=== PATIENT | female | born 1960 | race Caucasian/White ===

== ENCOUNTER 2024-06-01 15:12 | Outpatient (CLI) | payer BC ==
[~2024-06-01 15:12] MED LIST: Magnevist 469MG/ML 20 ML VIAL ONE
== END 2024-06-01 15:13 | disposition home or self-care (01) ==
LOC: CSHMRI 15:12
PROVIDERS: ATTEND Family Medicine
DX: N89.8 Other specified noninflammatory disorders of vagina (principal)
CPT/HCPCS: 72197; A9579

== ENCOUNTER 2024-07-27 07:49 | Outpatient (CLI) | payer BC ==
[2024-07-27 09:22] LABS: #Basophils 0.05 10x3/uL (0.0-0.2); #Eosinophils 0.16 10x3/uL (0.0-0.5); #Monocytes 1.01 10x3/uL (0.0-1.1); #Neutrophils 11.06 10x3/uL (1.5-8.4); %Basophils 0.4 % (0.0-2.0); %Eosinophils 1.2 % (0.0-6.0); %Lymphocytes 7.3 % (18.0-47.0); %Monocytes 7.6 % (0.0-10.0); %Neutrophils 82.9 % (40.0-75.0); Hemoglobin 9.2 g/dL (12.0-15.5); Mean Corpuscular HGB CONC 29.7 g/dL (32.0-36.0); Mean Corpuscular Hemoglobin 26.4 pg (27.0-33.0); Mean Corpuscular Volume 89.1 fL (81.6-98.3); Mean Platelet Volume 8.9 fL (7.4-10.4); Platelet Count 563 10x3/uL (150-450); RBC Distribution Width 15.4 % (11.5-14.5); Red Blood Cell (RBC) Count 3.48 10x6/uL (3.90-5.03); White Blood Cell (WBC) Count 13.3 10x3/uL (3.5-10.5)
[2024-07-27 09:44] LABS: Anion Gap 18 mmol/L (10-20); BUN (Urea Nitrogen) 13 mg/dL (9.8-20.1); Calc. Creatinine Clearance 0 mL/min (70-130); Calcium 8.9 mg/dL (7.8-10.44); Carbon Dioxide 23 mmol/L (23-31); Chloride 103 mmol/L (98-107); Estimated GFR 64; Glucose 112 mg/dL (80-115); Potassium 3.8 mmol/L (3.5-5.1); Sodium 140 mmol/L (136-145)
[2024-07-27 13:04] LABS: Hemoglobin A1c 5.2 % (4.0-6.0)
== END 2024-07-27 07:50 | disposition home or self-care (01) ==
LOC: CSHLAB 07:49
PROVIDERS: ATTEND Surgery
DX: Z01.812 Encounter for preprocedural laboratory examination (principal); C20 Malignant neoplasm of rectum
CPT/HCPCS: 80048; 83036; 85025

== ENCOUNTER 2024-07-27 08:00 | Observation (INO) | payer BC ==
[2024-08-01] MEDS ORDERED: Bupivacaine/Epinephrine 0.25% 30 ML VIAL ONE (09:18)
[2024-08-01] MEDS ORDERED: Lidocaine 2% MPF 10 ML AMP (For Epidural Use) ONE ×2 (09:18→10:06)
[2024-08-01] MEDS ORDERED: Ropivacaine 0.5% HCl/PF (150 MG/30 ML VIAL) ONE (09:41)
[2024-08-01] MEDS ORDERED: fentaNYL 50 mcg/mL 1 mL Vial ONE ×5 (09:42→13:34)
[2024-08-01] MEDS ORDERED: Lidocaine 1% PF 5 ML VIAL ONE ×2 (09:42→10:19)
[2024-08-01] MEDS ORDERED: Midazolam HCl 2 mg/2 ml Vial ONE (09:42)
[2024-08-01] MEDS ORDERED: Ropivacaine 0.2% HCl/PF 20 ML ONE (09:42)
[2024-08-01] MEDS ORDERED: EPINEPHrine 1 MG/ML VIAL ONE (09:42)
[2024-08-01] MEDS ORDERED: Lidocaine 1% (PF) 30 ML VIAL ONE (10:06)
[2024-08-01] MEDS ORDERED: ceFOXitin 1 GM VIAL ONE (10:10)
[2024-08-01] MEDS ORDERED: PROPOFOL 20 ML ONE (10:19)
[2024-08-01] MEDS ORDERED: Rocuronium Bromide 10 MG/ML (10ML VIAL) ONE (10:19)
[2024-08-01] MEDS ORDERED: PHENYLEPHRINE-NS 100 MCG/ML 10 ML SYRINGE ONE (11:58)
[2024-08-01] MEDS ORDERED: Ondansetron PF 4 MG/2 ML Vial ONE (12:38)
[2024-08-01] MEDS ORDERED: SUGAMMADEX SODIUM 200 MG/2 ML VIAL ONE (12:42)
[2024-08-01] MEDS ORDERED: Naloxone HCl 0.4 mg/ml Vial IVP PRN (13:17)
[2024-08-01] MEDS ORDERED: Ipratropium/Albuterol 3 ML NEB NEB PRN (13:17)
[2024-08-01] MEDS ORDERED: traMADol HCl 50 MG TAB PO PRN (13:17)
[2024-08-01] MEDS ORDERED: hydrALAZINE 20 MG/ML VIAL SLOW IVP PRN (13:17)
[2024-08-01] MEDS ORDERED: Glucagon 1 MG/ML KIT IM PRN (13:17)
[2024-08-01] MEDS ORDERED: Dextrose 50% Abboject 50 ML SYRINGE SLOW IVP PRN (13:17)
[2024-08-01] MEDS ORDERED: Promethazine HCl 25 MG/ML VIAL IM PRN (13:17)
[2024-08-01] MEDS ORDERED: Ondansetron PF 4 MG/2 ML Vial IVP PRN (13:17)
[2024-08-01] MEDS ORDERED: Dextrose 5% in Water 1,000 ML IV PRN (13:17)
[2024-08-01] MEDS ORDERED: fentaNYL 50 mcg/mL 1 mL Vial SLOW IVP PRN (13:37)
[2024-08-01 14:19] VITALS: BMI 30.9
[2024-08-01] MEDS: Ketorolac Tromethamine 30 MG (1 mL) VIAL IVP PRN (15:02)
[2024-08-01] MEDS: Acetaminophen 500 MG TAB PO SCH (15:03)
[2024-08-01] MEDS: D5 1/2 NS w/20 mEq KCL 1,000 ML IV SCH (15:03)
[2024-08-01] MEDS: Famotidine 20 MG TAB PO SCH (20:42)
[2024-08-01] MEDS ORDERED: Famotidine/PF 20 mg/2ml Vial SLOW IVP PRN (21:00)
[2024-08-01] MEDS ORDERED: Benzonatate 100 MG CAP PO PRN (23:00)
[2024-08-02] MEDS: Enoxaparin 40 MG (0.4 mL) SYRINGE SC SCH (09:33)
[2024-08-02] MEDS: Polyethylene Glycol 3350 17 GM Packet PO SCH (09:33)
[2024-08-02 14:19] VITALS: BMI 30.9
[2024-08-02] MEDS ORDERED: D5 1/2 NS w/20 mEq KCL 1,000 ML IV SCH (17:32)
[2024-08-03 05:07] VITALS: TEMP 97.9
[2024-08-03 09:35] VITALS: BP 120/61
[2024-08-03] MEDS: traMADol HCl 50 MG TAB PO PRN (10:46)
== END 2024-08-03 12:51 | disposition home or self-care (01) ==
LOC: CSHERHOLD 08-01 08:39 → INTOOBSV 08-01 08:39 → CSHTELE 08-01 14:05
PROVIDERS: ADMIT Surgery; ATTEND Surgery
PROC: 0JH63WZ Insertion of Totally Implantable Vascular Access Device into Chest Subcutaneous Tissue and Fascia, Percutaneous Approach (ICD-10-PCS; principal; 2024-08-03)
PROC: 0H87XZZ Division of Abdomen Skin, External Approach (ICD-10-PCS; 2024-08-03)
DX: C20 Malignant neoplasm of rectum (principal); Z79.899 Other long term (current) drug therapy; Z91.030 Bee allergy status; Z90.710 Acquired absence of both cervix and uterus; Z98.890 Other specified postprocedural states
CPT/HCPCS: 36416; 71045; 93005; 93010; 94760; 97139; A4314; C1788; J0171; J0694; J1642; J1650; J1885; J2250; J2405; J2704; J2795; J3010; J3480